=== PATIENT | female | born 1935 | race Caucasian/White ===

== ENCOUNTER 2023-12-11 09:38 | Inpatient (IN) | payer OTHER, MEDICAID ==
[~2023-12-11] VITALS: Ht 160 cm; Wt 71.2 kg
[2023-12-11] VITALS (8 sets, daily range): BP systolic 115–130; BP diastolic 55–104; PULSE 77–139; RESP 18–20; TEMP 97.2–98; O2SAT 96–100
[2023-12-11] MEDS: VERAPAMIL 5 MG/2 ML VIAL IVP ONE (10:12)
[2023-12-11 10:28] LABS: BASOPHILS # (AUTO) 0.1 K/uL (0.00-0.22); BASOPHILS % (AUTO) 0.7 % (0.0-2.0); EOSINOPHILS # (AUTO) 0.3 K/uL (0-0.4); EOSINOPHILS % (AUTO) 3.7 % (0.0-4.0); HEMATOCRIT 31.6 % (36-48); HEMOGLOBIN 10.5 g/dL (12.0-16.0); LYMPHOCYTES # (AUTO) 2.1 K/uL (2.5-16.5); LYMPHOCYTES % (AUTO) 24.6 % (20.5-51.1); MEAN CORPUSCULAR HEMOGLOBIN 35 pg (27-31); MEAN CORPUSCULAR HGB CONC 33 g/dL (33-37); MEAN CORPUSCULAR VOLUME 103.8 fL (80-94); MONOCYTES # (AUTO) 0.7 K/uL (0.8-1.0); MONOCYTES % (AUTO) 7.8 % (1.7-9.3); NEUTROPHILS # (AUTO) 5.3 K/uL (1.8-7.7); NEUTROPHILS % (AUTO) 63.2 % (42.2-75.2); PLATELET COUNT (AUTO) 237 K/uL (140-450); RED BLOOD CELL COUNT(AUTO) 3.04 MIL/uL (4.20-5.40); RED CELL DISTRIBUTION WIDTH 15.6 % (11.6-13.7); WHITE BLOOD COUNT (AUTO) 8.4 K/uL (4.8-10.8)
[2023-12-11 10:44] LABS: ANION GAP 15.7 (8-16); CALCIUM 8.6 mg/dL (8.5-10.1); CARBON DIOXIDE 21.9 mmol/L (21-32); CHLORIDE 108 mmol/L (98-107); CREATININE 1.5 mg/dL (0.6-1.3); GLUCOSE 223 mg/dL (74-106); POTASSIUM 3.6 mmol/L (3.5-5.1); SODIUM SERUM 142 mmol/L (136-145); UREA NITROGEN, BLOOD 46 mg/dL (7-18)
[2023-12-11 12:26] LABS: APPEARANCE,URINE CLEAR (CLEAR); BILIRUBIN,URINE NEGATIVE (NEGATIVE); BLOOD, URINE TRACE-I (NEGATIVE); COLOR,URINE YELLOW (YELLOW); LEUKOCYTE ESTERASE ,URINE NEGATIVE (NEGATIVE); NITRITE, URINE NEGATIVE (NEGATIVE); PROTEIN,URINE NEGATIVE (NEGATIVE); UGLUCOSE NEGATIVE (NEGATIVE); UROBILINOGEN,URINE 0.2 EU/dL (0.2 - 1)
[2023-12-11] MEDS ORDERED: FERR-149 PO (12:50)
[2023-12-11] MEDS ORDERED: DICL100G32 TP (12:50)
[2023-12-11] MEDS ORDERED: DOCU-3 PO (12:50)
[2023-12-11] MEDS ORDERED: APIX5TAB PO (12:50)
[2023-12-11] MEDS ORDERED: FURO20TA8 PO (12:50)
[2023-12-11] MEDS ORDERED: ATOR20TA40 PO (12:50)
[2023-12-11] MEDS ORDERED: LEVO0.1T19 PO (12:50)
[2023-12-11] MEDS ORDERED: FOLI1TAB90 PO (12:50)
[2023-12-11] MEDS ORDERED: METO-744 PO (12:50)
[2023-12-11] MEDS ORDERED: APIX2.5 PO (12:50)
[2023-12-11] MEDS ORDERED: ACETAMINOPHEN 325 MG TAB PO PRN (13:10)
[2023-12-11] MEDS ORDERED: MORPHINE SULFATE 2 MG/ML SYR IVP PRN (13:10)
[2023-12-11] MEDS ORDERED: HYDROcodone/APAP 5/325 MG 1 TAB TAB PO PRN (13:10)
[2023-12-11] MEDS ORDERED: NITROGLYCERIN 0.4 MG TAB SL PRN (13:20)
[2023-12-11] MEDS ORDERED: AZITHROMYCIN 500 MG INJ VIAL IV ONE (14:06)
[2023-12-11] MEDS: AZITHROMYCIN 500 MG in DEXTROSE 5% 250 ML IV SCH (14:37)
[2023-12-11] MEDS ORDERED: cefTRIAXone 1,000 MG VIAL ONE (15:34)
[2023-12-11] MEDS: DILTIAZEM 25 MG/5 ML VIAL IVP ONE (19:53)
[2023-12-11] MEDS: APIXABAN 2.5 MG TAB PO SCH (20:56)
[2023-12-11] MEDS: DOCUSATE SODIUM 100 MG GELCAP PO SCH (20:56)
[2023-12-11] MEDS: METOPROLOL 25 MG TAB PO SCH (21:00)
[2023-12-12 04:00] VITALS: BP 119/58; PULSE 135; PULSE 62; RESP 18; TEMP 97.6; O2SAT 100
[2023-12-12] MEDS: LEVOTHYROXINE 0.1 MG TAB PO SCH (06:43)
[2023-12-12 07:06] LABS: HEMATOCRIT 30.2 % (36-48); HEMOGLOBIN 10.1 g/dL (12.0-16.0); MEAN CORPUSCULAR HEMOGLOBIN 35 pg (27-31); MEAN CORPUSCULAR HGB CONC 34 g/dL (33-37); MEAN CORPUSCULAR VOLUME 104.3 fL (80-94); PLATELET COUNT (AUTO) 220 K/uL (140-450); RED BLOOD CELL COUNT(AUTO) 2.89 MIL/uL (4.20-5.40); RED CELL DISTRIBUTION WIDTH 15.6 % (11.6-13.7); WHITE BLOOD COUNT (AUTO) 7.3 K/uL (4.8-10.8)
[2023-12-12 07:21] LABS: ALANINE AMINOTRANSFERASE 23 U/L (12-78); ALBUMIN 2.2 g/dL (3.4-5.0); ALKALINE PHOSPHATASE 63 U/L (50-136); ANION GAP 10.6 (8-16); ASPARTATE AMINOTRANSFERASE 15 U/L (15-37); CALCIUM 8.2 mg/dL (8.5-10.1); CARBON DIOXIDE 27.2 mmol/L (21-32); CHLORIDE 109 mmol/L (98-107); CREATININE 1.4 mg/dL (0.6-1.3); GLUCOSE 141 mg/dL (74-106); POTASSIUM 3.8 mmol/L (3.5-5.1); SODIUM SERUM 143 mmol/L (136-145); UREA NITROGEN, BLOOD 40 mg/dL (7-18)
[2023-12-12 07:48] LABS: BASOPHILS % (MANUAL) 0 % (0-2); BLASTS, MANUAL % 0 % (0-0); EOSINOPHILS % (MANUAL) 4 % (0-4); LYMPHOCYTES % (MANUAL) 30 % (20-46); METAMYELOCYTES % 0 % (0-0); MONOCYTES % (MANUAL) 4 % (5-12); MYELOCYTES % 0 % (0-0); OTHER CELLS,MANUAL % 0 (0-0); PLASMA CELLS 0; PLATELET ESTIMATE ADEQUATE; PROMYELOCYTES % 0 % (0-0); SMUDGE CELLS 0
[2023-12-12 07:49] LABS: OVALOCYTES 1+
[2023-12-12 08:00] VITALS: BP 107/62; PULSE 62; PULSE 99; RESP 18; TEMP 97.2; O2SAT 100
[2023-12-12] MEDS: FOLIC ACID 1 MG TAB PO SCH (08:59)
[2023-12-12] MEDS: FERROUS SULFATE 325 MG TABEC PO SCH (08:59)
[2023-12-12] MEDS: ASPIRIN 81 MG TAB.CHEW PO SCH (09:00)
[2023-12-12] MEDS: FUROSEMIDE 20 MG TAB PO SCH (09:01)
[2023-12-12] MEDS: ATORVASTATIN 20 MG TAB PO SCH (09:01)
[2023-12-12] MEDS ORDERED: INSULIN LISPRO SLIDING SCALE 100 UNITS/ML VIAL SUBQ PRN (10:20)
[2023-12-12] MEDS ORDERED: DEXTROSE 50% 50 ML SYR IVP PRN (10:20)
[2023-12-12 12:00] VITALS: BP 117/60; PULSE 122; PULSE 69; RESP 18; TEMP 97.9; O2SAT 99
[2023-12-12] MEDS: BLOOD GLUCOSE MONITORING 1 DEV DEV FS SCH (12:23)
[2023-12-12 16:00] VITALS: BP 123/73; PULSE 126; PULSE 95; RESP 18; TEMP 97.3; O2SAT 100
[2023-12-12] MEDS: FUROSEMIDE 40 MG/4 ML VIAL IVP SCH (17:16)
[2023-12-12 20:00] VITALS: BP 104/62; PULSE 136; PULSE 74; PULSE 80; RESP 18; TEMP 98.2; O2SAT 100; O2SAT 99
[2023-12-13] VITALS (10 sets, daily range): BP systolic 110–131; BP diastolic 58–60; PULSE 57–94; RESP 16–18; TEMP 96.8–97.7; O2SAT 94–100
[2023-12-13 07:35] LABS: ALANINE AMINOTRANSFERASE 21 U/L (12-78); ALBUMIN 2.3 g/dL (3.4-5.0); ALKALINE PHOSPHATASE 67 U/L (50-136); ANION GAP 13.1 (8-16); ASPARTATE AMINOTRANSFERASE 17 U/L (15-37); CALCIUM 8.2 mg/dL (8.5-10.1); CARBON DIOXIDE 27.5 mmol/L (21-32); CHLORIDE 107 mmol/L (98-107); CREATININE 1.3 mg/dL (0.6-1.3); GLUCOSE 135 mg/dL (74-106); POTASSIUM 3.6 mmol/L (3.5-5.1); SODIUM SERUM 144 mmol/L (136-145); TOTAL BILIRUBIN 0.9 mg/dL (0.0-1.0); TOTAL PROTEIN, SERUM 6.3 g/dL (6.4-8.2); UREA NITROGEN, BLOOD 31 mg/dL (7-18)
[2023-12-13 07:37] LABS: BASOPHILS % (AUTO) 0.4 % (0.0-2.0); EOSINOPHILS # (AUTO) 0.5 K/uL (0-0.4); EOSINOPHILS % (AUTO) 7.5 % (0.0-4.0); HEMATOCRIT 30.6 % (36-48); HEMOGLOBIN 10.2 g/dL (12.0-16.0); LYMPHOCYTES # (AUTO) 2.3 K/uL (2.5-16.5); LYMPHOCYTES % (AUTO) 34.6 % (20.5-51.1); MEAN CORPUSCULAR HEMOGLOBIN 35 pg (27-31); MEAN CORPUSCULAR HGB CONC 33 g/dL (33-37); MEAN CORPUSCULAR VOLUME 105.5 fL (80-94); MONOCYTES # (AUTO) 0.7 K/uL (0.8-1.0); NEUTROPHILS # (AUTO) 3.1 K/uL (1.8-7.7); NEUTROPHILS % (AUTO) 47.5 % (42.2-75.2); PLATELET COUNT (AUTO) 205 K/uL (140-450); WHITE BLOOD COUNT (AUTO) 6.6 K/uL (4.8-10.8)
[2023-12-13] MEDS: CYANOCOBALAMIN 100 MCG TAB PO SCH (08:46)
[2023-12-13] MEDS ORDERED: METO25TA PO (12:45)
[2023-12-13] MEDS ORDERED: VITB12 PO (12:45)
[2023-12-13] MEDS ORDERED: LEVO750T75 PO (12:48)
== END 2023-12-13 13:30 | disposition home health service (06) | DRG 193 ==
LOC: MED 09:38 → MTU 13:16
PROVIDERS: ADMIT Family Medicine; ATTEND Family Medicine
DX: J18.9 Pneumonia, unspecified organism (principal); E43 Unspecified severe protein-calorie malnutrition; I21.A1 Myocardial infarction type 2; N17.9 Acute kidney failure, unspecified; I13.0 Hypertensive heart and chronic kidney disease with heart failure and stage 1 through stage 4 chronic kidney disease, or unspecified chronic kidney disease; I48.20 Chronic atrial fibrillation, unspecified; I50.9 Heart failure, unspecified; E11.65 Type 2 diabetes mellitus with hyperglycemia; N18.9 Chronic kidney disease, unspecified; Z79.01 Long term (current) use of anticoagulants; Z79.899 Other long term (current) drug therapy; Z68.27 Body mass index [BMI] 27.0-27.9, adult
CPT/HCPCS: 36415; 71045; 80048; 80053; 81003; 82948; 83880; 84484; 85025; 87040; 87081; 87086; 93005; 96365; 96367; 96375; 97112; 97116; 99285; J0456; J0696; J1940; J3490; J7060; Q0092